=== PATIENT | female | born 1970 | race Caucasian/White ===

== ENCOUNTER 2020-04-02 14:58 | Emergency (ER) | payer OTHER | END 2020-04-02 16:06 | disposition home or self-care (01) | LOC: JVIRT 14:58 | DX: Z03.818 Encounter for observation for suspected exposure to other biological agents ruled out (principal) | CPT/HCPCS: C9803; Q3014-GT; U0003 ==

== ENCOUNTER 2022-05-14 10:51 | Emergency (ER) | payer OTHER ==
[2022-05-14 11:05] VITALS: BP 115/50; PULSE 74; RESP 16; TEMP 98; BMI 24.0
== END 2022-05-14 11:54 | disposition home or self-care (01) ==
LOC: FER 10:51
DX: S82.832A Other fracture of upper and lower end of left fibula, initial encounter for closed fracture (principal); X50.0XXA Overexertion from strenuous movement or load, initial encounter
CPT/HCPCS: 73610-TC-LT-FY; 99283-25